=== PATIENT | male | born 1990 ===

== ENCOUNTER 2018-01-15 10:00 | Emergency (ER) | payer MEDICAID, OTHER ==
[2018-01-15 10:11] VITALS: BP 108/71; PULSE 83; RESP 16; TEMP 98.4; O2SAT 99
--- NOTE | 2018-01-15 10:21 | C.PDOC ---
History Of Present Illness 27 y/o male presents to the ED for evaluation. Patient reports that 2 days ago he noticed he was losing hair. States last week he had a fever and cold sore. Denies any other complaints. Time Seen by Provider: 01/15/18 10:14 Chief Complaint (Nursing): Abnormal Skin Integrity History Per: Patient History/Exam Limitations: no limitations Onset/Duration Of Symptoms: Days Current Symptoms Are (Timing): Still Present Past Medical History Reviewed: Historical Data, Nursing Documentation, Vital Signs Vital Signs: Last Vital Signs Temp 98.4 F 01/15/18 10:08 Pulse 83 01/15/18 10:08 Resp 16 01/15/18 10:08 BP 108/71 01/15/18 10:08 Pulse Ox 99 01/15/18 10:27 - Medical History PMH: No Chronic Diseases Surgical History: No Surg Hx Family History: States: No Known Family Hx - Social History Hx Tobacco Use: No Hx Alcohol Use: No Hx Substance Use: No - Immunization History Hx Tetanus Toxoid Vaccination: No Hx Influenza Vaccination: No Hx Pneumococcal Vaccination: No Review Of Systems Except As Marked, All Systems Reviewed And Found Negative. Constitutional: Positive for: Fever (last week) Eyes: Negative for: Vision Change ENT: Positive for: Other (cold sore last week). Negative for: Nose Congestion Cardiovascular: Negative for: Chest Pain Respiratory: Negative for: Cough, Shortness of Breath Gastrointestinal: Negative for: Vomiting, Abdominal Pain Skin: Positive for: Other (Hair loss) Neurological: Negative for: Weakness, Headache Physical Exam - Physical Exam Appears: Well, Non-toxic, No Acute Distress Skin: Warm, Dry, No Rash Head: Atraumatic, Normacephalic Eye(s): bilateral: Normal Inspection, PERRL, EOMI Nose: Normal Oral Mucosa: Moist Chest: Symmetrical Cardiovascular: Rhythm Regular Respiratory: Normal Breath Sounds, No Accessory Muscle Use, Other (No respiratory distress) Extremity: Bilateral: Atraumatic, Normal Color And Temperature Neurological/Psych: Oriented x3, Normal Speech ED Course And Treatment O2 Sat by Pulse Oximetry: 99 (RA) Pulse Ox Interpretation: Normal Medical Decision Making Medical Decision Making: Impression: Hair loss Patient counseled regarding normal physical exam findings, and diagnosis of hair loss. There is no need for further ED intervention at this time. Advised patient to follow up with PMD/the clinic as needed. Disposition Counseled Patient/Family Regarding: Need For Followup - Disposition Referrals: [facility] [Outside] [facility] [Outside] Disposition: HOME/ ROUTINE Disposition Time: 10:20 Condition: STABLE Additional Instructions: return to er with worsening symptoms or concerns. please follow up in clinic. you may need further workup as an outpatient Instructions: Hair Loss in Men and Women Forms: [employer] ([employer]) - POA Present On Arrival: None - Clinical Impression Clinical Impression: Hair loss - Scribe Statement The provider has reviewed the documentation as recorded by the Scribe (Lilliana Anaya) Provider Attestation: All medical record entries made by the Scribe were at my direction and personally dictated by me. I have reviewed the chart and agree that the record accurately reflects my personal performance of the history, physical exam, medical decision making, and the department course for this patient. I have also personally directed, reviewed, and agree with the discharge instructions and disposition.
== END 2018-01-15 10:37 | disposition home or self-care (01) ==
LOC: C.ER 10:00
DX: L65.9 Nonscarring hair loss, unspecified (principal)